=== PATIENT | male | born 1970 | race Caucasian/White ===

== ENCOUNTER → 2016-12-13 | Outpatient (CLI) | payer OTHER ==
--- NOTE | 2016-12-14 08:16 | KCIC ---
MR THORACIC SPINE Indication: Back pain after fall in June 2016 COMPARISON: None Technique: Sagittal T2, sagittal STIR, sagittal T1, and axial gradient echo imaging was obtained of the thoracic spine. FINDINGS: Vertebral body height and alignment is maintained throughout the thoracic spine. There is a normal thoracic kyphosis. No abnormal bone marrow signal seen. The canal is patent throughout. The cord is of normal caliber without abnormal signal. No significant degenerative changes are identified. Paraspinous soft tissues are within normal limits. Visualized intrathoracic contents are unremarkable. IMPRESSION: Unremarkable MR examination of the thoracic spine. Electronically signed by: Tio Lora MD (12/14/2016 8:13 AM)
--- NOTE | 2016-12-14 08:19 | KCIC ---
MR LUMBAR SPINE Back pain after fall in June 2016 COMPARISON: None Technique: Sagittal T2, sagittal STIR, and sagittal T1-weighted images were obtained. Additional axial T1 and T2 weighted imaging was also performed. FINDINGS: Alignment and curvature are within normal limits. No compression deformities are identified. No abnormal bone marrow signal is seen. The conus is in normal position without abnormal signal. Paravertebral soft tissues are unremarkable. Visualized intra-abdominal contents are within normal limits. There is very mild degenerative disc disease at the level of L1-L2 with some mild reactive endplate edema at the superior endplate of L2. IMPRESSION: Negative for compression fracture or spinal stenosis. Mild degenerative disc disease at L1-L2. Electronically signed by: Tio Lora MD (12/14/2016 8:16 AM)
== END | disposition home or self-care (01) ==
LOC: KCIC MRI 16:34
PROVIDERS: ATTEND Physical Medicine & Rehabilitation
DX: M51.36 Other intervertebral disc degeneration, lumbar region (principal)
CPT/HCPCS: 72146; 72148